=== PATIENT | female | born 1945 | race Caucasian/White ===

== ENCOUNTER → 2018-09-18 | Day surgery (SDC) | payer MEDICARE ==
--- NOTE | 2018-09-17 13:38 | Diagnostic Imaging Report ---
EXAMINATION: PA and lateral views of the chest. COMPARISON: 07/11/2015 CLINICAL HISTORY: Preoperative study for orthopedic procedure DISCUSSION: Stable position of left subclavian approach central venous port catheter, with the tip projecting over the low superior vena cava. Lungs are well-inflated and without focal consolidation, pleural effusion, or pneumothorax. Stable cardiomediastinal contour with tortuosity and atherosclerotic calcification of the thoracic aorta. Normal heart size. No pulmonary edema. No acute osseous abnormalities. IMPRESSION: No acute cardiopulmonary abnormalities. Signed by: Dr. Anthony Broussard M.D. on 09/17/2018 1:35 PM
[~2018-09-18] MED LIST: CEFAZOLIN SOD 1 GM/NS 50ML 50 ML IV ONE; DEXAMETHASONE SOD PHOS INJ 4 MG/ML VIAL ONE; DIPHENHYDRAMINE HCL INJ 50 MG/ML VIAL ONE; FENTANYL CITRATE/PF 100MCG/2 ML INJ ONE; HYDRALAZINE HCL 20 MG/ML VIAL ONE; KETOROLAC TROMETHAMINE 30 MG/ML VIAL ONE; LIDOCAINE HCL 2% LOCAL INJ 5 ML SDV VIAL INJ ONE; LOSARTAN-HCTZ1 EACH PO; MEPERIDINE HCL INJ 25 MG/ML VIAL ONE; ONDANSETRON HCL INJ 2MG/ML 2ML 2 MG/ML VIAL ONE; PROPOFOL IV EMULSION 10 MG/ML 20 ML VIAL ONE; SEVOFLURANE INHAL SOLN 250 ML PEN BTL ONE; SIMVASTATIN20 MG PO; VITAMIN D-3 PO
--- OUTSIDE RECORDS SUMMARY | 2018-09-18 10:32 | XMS REPORT ---
Author Author [facility] Address Unknown Phone Unavailable Care Team Providers Care Canal Superintendent Name Role Phone SHAHAB MARIANO Unavailable Unavailable Payers Payer Name Policy Type Policy Number Effective Date Expiration Date Problems This patient has no known problems. Allergies, Adverse Reactions, Alerts Allergy Name Allergy Type Status Severity Reaction(s) Onset Date Inactive Date Treating Clinician Comments codeine DA Active U 2018-09-05 00:00:00 Medications This patient has no known medications. Results Test Description Test Time Test Comments Text Results Atomic Results Result Comments CHEST 2 VIEWS 2018-09-17 13:33:00 [place] [address] Patient Name: JUAN MANUEL DOBBINS MR #: [id number] : 1945 Age/Sex: 73/F Req #: [id number] Adm Physician: Ordered by: SHAHAB MARIANO MD Report #: [id number] Location: OR Room/Bed: Procedure: [id number] DX/CHEST 2 VIEWS Exam Date: 09/17/18 Exam Time: 1235 REPORT STATUS: Signed EXAMINATION: PA and lateral views of the chest. COMP ARISON: 07/11/2015 CLINICAL HISTORY: Preoperative study for orthopedic procedure DISCUSSION: Stable position of left subclavian approach central venous port catheter, with the tip projecting over the low superior vena cava. Lungs are well-inflated and without focal consolidation, pleural effusion, or pneumothorax. Stable cardiomediastinal contour with tortuosity and atherosclerotic calcification of the thoracic aorta. Normal heart size. No pulmonary edema. No acute osseous abnormalities. IMPRESSION: No acute cardiopulmonary abnormalities. Signed by: Dr. Shahab Broussard M.D. on 09/17/2018 1:35 PM Dictated By: SHAHAB BROUSSARD MD 1330 Transcribed By: FLAVIO on 09/17/18 1339 COPY TO: SHAHAB MARIANO MD TROPONIN-I 2018-09-07 02:09:00 TROPONIN-I (test code=TROPI) 0.089 ng/mL 0-0.045 COMPREHENSIVE METABOLIC [id number] 02:07:00* Test Item Value Reference Range Comments SODIUM (test code=NA) 138 mmol/L 136-145 POTASSIUM (test code=K) 4.0 mmol/L 3.5-5.1 CHLORIDE (test code=CL) 102.0 mmol/L 98-107 CARBON DIOXIDE (test code=CO2) 27.0 mmol/L 21-32 ANION GAP (test code=GAP) 13.0 10-20 GLUCOSE (test code=GLU) 111 mg/dL 74-106 BLOOD UREA NITROGEN (test code=BUN) 15 mg/dL 7-18 GLOMERULAR FILTRATION RATE (test code=GFR) > 60 mL/min >=60 Estimated GFR by using Modified MDRD formula.Chronic kidney disease is defined as either kidney damageor GFR <60 mL/min/1.73 m2 for >3 months. CREATININE (test code=CREAT) 0.80 mg/dL 0.55-1.02 Note change in reference range due to change in reagent. BUN/CREATININE RATIO (test code=BUN/CREA) 18.8 10-20 TOTAL PROTEIN (test code=PROT) 6.0 gram/dL 6.4-8.2 ALBUMIN (test code=ALB) 3.5 g/dL 3.4-5.0 GLOBULIN (test code=GLOB) 2.5 gram/dL 2.7-4.2 ALBUMIN/GLOBULIN RATIO (test code=A/G) 1.4 0.75-1.50 CALCIUM (test code=CA) 8.6 mg/dL 8.5-10.1 BILIRUBIN TOTAL (test code=BILT) 0.60 mg/dL 0.0-1.0 SGOT/AST (test code=AST) 15 IUnit/L 15-37 SGPT/ALT (test code=ALT) 23 IUnit/L 12-78 ALKALINE PHOSPHATASE TOTAL (test code=ALKP) 68 IUnit/L 45-117 Note change in reference range due to change in reagent. CBC W/AUTO [id number] 01:41:00* Test Item Value Reference Range Comments WHITE BLOOD CELL (test code=WBC) 7.6 K/mm3 4.5-12.5 RED BLOOD CELL (test code=RBC) 4.24 mill/mm3 3.7-5.2 HEMOGLOBIN (test code=HGB) 12.7 gram/dL 11.5-15.5 HEMATOCRIT (test code=HCT) 39.1 % 36.0-46.0 MEAN CELL VOLUME (test code=MCV) 92.2 fL 80-98 MEAN CELL HGB (test code=MCH) 30.0 picogram 27.0-33.0 MEAN CELL HGB CONCETRATION (test code=MCHC) 32.5 gram/dL 33.0-36.0 RED CELL DISTRIBUTION WIDTH (test code=RDW) 13.1 % 11.6-16.2 RED CELL DISTRIBUTION WIDTH SD (test code=RDW-SD) 44.0 fL 37.0-51.0 PLATELET COUNT (test code=PLT) 205 K/mm3 150-450 MEAN PLATELET VOLUME (test code=MPV) 10.3 fL 6.7-11.0 NEUTROPHIL % (test code=NT%) 65.0 % 39.0-69.0 IMMATURE GRANULOCYTE % (test code=IG%) 0.4 % 0.0-5.0 LYMPHOCYTE % (test code=LY%) 25.5 % 25.0-55.0 MONOCYTE % (test code=MO%) 8.0 % 0.0-10.0 EOSINOPHIL % (test code=EO%) 0.8 % 0.0-5.0 BASOPHIL % (test code=BA%) 0.3 % 0.0-1.0 NUCLEATED RBC % (test code=NRBC%) 0.0 % 0-0 NEUTROPHIL # (test code=NT#) 4.95 K/mm3 1.8-7.7 IMMATURE GRANULOCYTE # (test code=IG#) 0.03 x10 3/uL 0-0.03 LYMPHOCYTE # (test code=LY#) 1.94 K/mm3 1.0-5.0 MONOCYTE # (test code=MO#) 0.61 K/mm3 0-0.8 EOSINOPHIL # (test code=EO#) 0.06 K/mm3 0.0-0.5 BASOPHIL # (test code=BA#) 0.02 K/mm3 0.0-0.2 NUCLEATED RBC # (test code=NRBC#) 0.00 K/mm3 0.0-0.1 [id number] 20:59:00* Test Item Value Reference Range Comments TROPONIN-I (test code=TROPI) 0.084 ng/mL 0-0.045 RESULT VERIFIED BY REPEAT ANALYSIS DRAW V.LAB.AZ 09/06/181931- PULM VENT PERF [id number] 17:38:00 FAX: Andrew Gonsales MD [phone] [place]: St: ADM Name: KIEL VAZQUEZ [facility] : [birth year] Age/S: 73/F [address] [facility] Unit #: [id number] Loc: [place] [address] Phys: Andrew Gonsales MD Acct: [id number] Dis Date: Status: ADM IN PHONE #: [phone] Exam Date: 09/06/2018 1646 FAX #: [phone] Reason: HYPOXIA, R/O PE EXAMS: CPT CODE: [id number] PULM VENT PERF IMAG 12254 HISTORY: HYPOXIA, R/O PE EXAM: NUCLEAR PULMONARY V/Q SCAN. COMPARISON: None FINDINGS: Ventilation scan: After the patient was given 10 mCi Xenon 133 gas to inhale, posterior images were obtained of the lungs in immediate and washout phases. Homogeneous radiopharmaceutical distribution with symmetric washout bilaterally. Perfusion scan: After intravenous injection of 5.5 mCi TC 99m MAA, static images were obtained over the lungs in multiple projections. Homogeneous distribution of radi opharmaceutical in both lungs without pleural based segmental perfusion de fects. Ventilation and perfusion images are matched in the posteri or projection. IMPRESSION: Modified PIOP ED II category: PE absent (normal perfusion) Electronicall y Signed by Héctor Lucio MD on 09/06/2018 at 1816 Reporte d and signed by: Héctor Lucio MD CC: Andrew Gonsales MD Technologist: Raman Collazo Trnscrd Date/Time/By: 09/06/2018 (1388) : By: [email or web address] Orig Print D/T: S: 09/06/2018 (3072) PAGE 1 Signed Report [id number] 11:54:00* Test Item Value Reference Range Comments TROPONIN-I (test code=TROPI) 0.081 ng/mL 0-0.045 COMMENTS TO DAIRY EQUIPMENT MECHANIC: COLLECT 3 HOURS AFTER PREVIOUS [id number] 08:39:00* Test Item Value Reference Range Comments TROPONIN-I (test code=TROPI) 0.093 ng/mL 0-0.045 COMMENTS TO DAIRY EQUIPMENT MECHANIC: COLLECT 3 HOURS AFTER PREVIOUS SAMPLEB-TYPE NATRIURETIC [id number] 01:42:00* Test Item Value Reference Range Comments B-TYPE NATRIURETIC PEPTIDE (test code=BNP) 74.79 pgram/mL 0-100 BASIC METABOLIC [id number] 01:15:00* Test Item Value Reference Range Comments SODIUM (test code=NA) 139 mmol/L 136-145 POTASSIUM (test code=K) 3.9 mmol/L 3.5-5.1 CHLORIDE (test code=CL) 104.0 mmol/L 98-107 CARBON DIOXIDE (test code=CO2) 27.0 mmol/L 21-32 ANION GAP (test code=GAP) 11.9 10-20 GLUCOSE (test code=GLU) 130 mg/dL 74-106 BLOOD UREA NITROGEN (test code=BUN) 20 mg/dL 7-18 GLOMERULAR FILTRATION RATE (test code=GFR) > 60 mL/min >=60 Estimated GFR by using Modified MDRD formula.Chronic kidney disease is defined as either kidney damageor GFR <60 mL/min/1.73 m2 for >3 months. CREATININE (test code=CREAT) 0.80 mg/dL 0.55-1.02 Note change in reference range due to change in reagent. BUN/CREATININE RATIO (test code=BUN/CREA) 25.0 10-20 CALCIUM (test code=CA) 9.1 mg/dL 8.5-10.1 [id number] 01:15:00* Test Item Value Reference Range Comments TROPONIN-I (test code=TROPI) 0.095 ng/mL 0-0.045 Results called to [id number] by V.LAB.CLEVE 09/06/18 0114Critical results verified and read back by Nurse?Y [id number] 01:10:00* Test Item Value Reference Range Comments D-DIMER (test code=DDIMER) 1234.00 ng/mLFEU 0-500 Results called to [id number] by V.LAB.JQ 09/06/18 0110Critical results verified and read back by Nurse? YClinical Cut-off value for D-Dimer is 500 ng/mL FEU. Comment: The [employer] D- Dimer assay is intended for use asan aid in the diagnosis of venous thromboembolism (VTE)[deep vein thrombosis (DVT) or pulmonary embolism (PE)].The measurement of D-Dimer should not be used as an aid inthe diagnosis of VTE, in patient with: -Therapeutic dose anticoagulant therapy for >24 hours - Fibrinolytic therapy within previous 7 days -Trauma or surgery within previous 4 weeks -Disseminated malignancies -Aortic aneurysm -Sepsis, severe infections, pneumonia, severe skin infections -Liver cirrhosis - CBC W/O [id number] 01:03:00* Test Item Value Reference Range Comments WHITE BLOOD CELL (test code=WBC) 9.5 K/mm3 4.5-12.5 RED BLOOD CELL (test code=RBC) 4.37 mill/mm3 3.7-5.2 HEMOGLOBIN (test code=HGB) 13.0 gram/dL 11.5-15.5 HEMATOCRIT (test code=HCT) 39.6 % 36.0-46.0 MEAN CELL VOLUME (test code=MCV) 90.6 fL 80-98 MEAN CELL HGB (test code=MCH) 29.7 picogram 27.0-33.0 MEAN CELL HGB CONCETRATION (test code=MCHC) 32.8 gram/dL 33.0-36.0 RED CELL DISTRIBUTION WIDTH (test code=RDW) 12.7 % 11.6-16.2 PLATELET COUNT (test code=PLT) 220 K/mm3 150-450 MEAN PLATELET VOLUME (test code=MPV) 10.5 fL 6.7-11.0 BASIC METABOLIC [id number] 01:00:00* Test Item Value Reference Range Comments SODIUM (test code=NA) 139 mmol/L 136-145 POTASSIUM (test code=K) 3.9 mmol/L 3.5-5.1 CHLORIDE (test code=CL) 104.0 mmol/L 98-107 CARBON DIOXIDE (test code=CO2) mmol/L 21-32 ANION GAP (test code=GAP) 10-20 GLUCOSE (test code=GLU) mg/dL 74-106 BLOOD UREA NITROGEN (test code=BUN) mg/dL 7-18 GLOMERULAR FILTRATION RATE (test code=GFR) mL/min >=60 CREATININE (test code=CREAT) mg/dL 0.55-1.02 BUN/CREATININE RATIO (test code=BUN/CREA) 10-20 CALCIUM (test code=CA) 9.1 mg/dL 8.5-10.1 [id number] 01:00:00* Test Item Value Reference Range Comments TROPONIN-I (test code=TROPI) ng/mL 0-0.045 - XR CHEST 1 [id number] 23:41:00 FAX: Monico Goodwin MD [phone] [place]: B St: REG Name: KIEL VAZQUEZ [facility] : [birth year] Age/S: 73/F [address] Unit #: [id number] Loc: [place] [address] Phys: Monico Goodwin MD Acct: [id number] Dis Date: Status: REG ER PHONE #: [phone] Exam Date: 09/05/2018 2332 FAX #: [phone] Reason: Shortness of Breath EXAMS: CPT CODE: [id number] XR CHEST 1 V 79199 EXAM: Portable chest one view. Location code:J9 HISTORY: Shortness of breath COMPARISON: None available. COMMENT: A left-sided subclavian line is noted with tip in the SVC. The lungs and pleural spaces are clear. Lungs are normally expanded. The aorta, pulmonary vasculature and medias tinum are within normal limits. Cardiac silhouette is normal in size and contour. Visualized skeletal structures are unremarkable. IMPRESSION: No active disease in the chest. at 2341 Reported and si gned by: Aric Treviño M.D. CC: Monico Goodwin MD Technologist: Edel Duncan Trnscrd Date/Time/By: 09/05/2018 (3004) : By: [email or web address] Orig Print D/T: S: 09/05/2018 (5466) PAGE 1 Signed Report - XR WRIST 2 VIEWS LT 2018-09-05 21:04:00 FAX: Abdoulaye Gallagher MD [phone] [place]: B St: REG Name: KIEL VAZQUEZ [facility] : [birth year]18 [birth year] Age/S: 73/F [address] Unit #: [id number] Loc: [place] [address] Phys: Abdoulaye Gallagher MD Acct: [id number] Dis Date: Status: REG ER PHONE #: [phone] Exam Date: 09/05/20182049 FAX #: [phone] Reason: post reduction film EXAMS: CPT CODE: [id number] XR WRIST [address] [place] [address] REASON FOR EXAM: post reduction film EXAM ORDER DATE: 09/05/2018 8:38 PM Ordering M.DNichol: Abdoulaye Gallagher MD PROCEDURE: - XR WRIST 2 VIEWS LT FINDINGS: 3 views of the left wrist were obtained. IMPRESSION: Near anatomical alignment of the comminuted fracture of the distal left radius and transverse fracture of the distal left ulna at 2103 Reported and signed by: Michele Hallman M.D. CC: Abdoulaye Gallagher MD Technologist: RT LORENA(Marta) Trnscrd Date/Time/By: 09/05/2018 (2103) : By: BethVTL Orig Print D/T: S: 09/05/2018 (2106) PAGE 1 Signed Report - XR HUMERUS 2 + V [id number] 17:14:00 FAX: Abdoulaye Gallagher MD [phone] [place]: St: REG Name: KIEL VAZQUEZ [facility] : [birth year] 42 Age/S: 73/F [address] Unit #: [id number] Loc: [place] [address] Phys: Abdoulaye Gallagher MD Acct: [id number] Dis Date: Status: REG ER PHONE #: [phone] Exam Date: 09/05/2018454 FAX #: [phone] Reason: fall EXAMS: CPT CODE: [id number] XR HUMERUS 2 + [place] [address] REASON FOR EXAM: fall EXAM ORDER DATE: 09/05/2018 4:38 PM Milena lares M.D.: Abdoulaye Gallagher MD PROCEDURE: - XR HUMERUS 2 + V LT FINDINGS: 2 views of the left humerus were obtained. The osseous structures are unremarkable in size and shape. The joint spaces are main tained. No evidence of fracture. The acromioclavicular joint is intact IMPRESSION: Unremarkable left humerus Electronically S igned by Jim Hallman on 09/05/2018 at 9087 Reported and signed by: Michele Hallman M.D. CC: Abdoulaye Gallagher MD Technologist: SACHI MADERA) Trnscrd Date/Time/By: 09/05/2018 (0739) : By: BethVTL Orig Print D/T: S: 09/05/2018 (5371) PAGE 1 Signed Report - XR FOREARM 2 VIEWS LT 2018-09-05 16:19:00 FAX: Abdoulaye Gallagher MD [phone] [place]: St: PRE Name: KIEL VAZQUEZ [facility] : [birth year] Age/S: 73/F [address] [facility] Unit #: [id number] Loc: [place] [address] Phys: Abdoulaye Gallagher MD Acct: [id number] Dis Date: Status: PRE ER PHONE #: [phone] Exam Date: 09/05/2018 1605 FAX #: [phone] Reason: fall EXAMS: CPT CODE: [id number] XR FORE[place] [address] [place] [address] TECHNIQUE - XR HAND 3 + V LT, - XR WRIST 3 + V LT, - XR FOREARM 2 VIEWS LT . COMPARISON: N one provided. HISTORY: 73 years Female fall FINDINGS: Bones: Acute fracture distal left radius with intra-articular extension. 7 mm anterior displacement of the distal segment. 3 mm impaction. Surrounding soft tissue swelling. Acute fracture of distal ulna with at least 2 mm separation. No dislocation. No suspici ous bone lesion. Joints: Moderate osteophytes. Mod erate joint space reduction. No subchondral bone lesions. No bony erosi ons. Other: None. IMPRESSION: Ac pokagon fracture distal left radius with intra-articular extension. 7 mm ant erior displacement of the distal segment. 3 mm impaction. Surrounding so ft tissue swelling. Acute fracture of distal ulna with at least 2 mm sep aration. Moderate osteoarthritic changes. at 0516 Reported and signed by: Raman Palafox M.D. CC: Abdoulaye Gallagher MD Technologist: Zeny Thurston RT(R) Trnscrd Date/Time/By: 09/05/2018 (3090) : By: AdelinaO Orig Print D/T: S: 09/05/2018 (1522) PAGE 1 Signed Report - XR WRIST 3 + V LT 2018-09-05 16:19:00 FAX: Abdoulaye Gallagher MD [phone] [place]: St: PRE Name: KIEL VAZQUEZ [facility] : [birth year] 42 Age/S: 73/F [address] [facility] Unit #: [id number] Loc: [place] [address] Phys: Abdoulaye Gallagher MD Acct: [id number] Dis Date: Status: PRE ER PHONE #: [phone] Exam Date: 09/05/2018 1605 FAX #: [phone] Reason: fall EXAMS: CPT CODE: [id number] XR WRIST 3 + [place] LT [address] TECHNIQUE - XR HAND 3 + V LT, - XR WRIST 3 + V LT, - XR FOREARM 2 VIEWS LT . COMPARISON: N one provided. HISTORY: 73 years Female fall FINDINGS: Bones: Acute fracture distal left radius with intra-articular extension. 7 mm anterior displacement of the distal segment. 3 mm impaction. Surrounding soft tissue swelling. Acute fracture of distal ulna with at least 2 mm separation. No dislocation. No suspici ous bone lesion. Joints: Moderate osteophytes. Mod erate joint space reduction. No subchondral bone lesions. No bony erosi ons. Other: None. IMPRESSION: Ac pokagon fracture distal left radius with intra-articular extension. 7 mm ant erior displacement of the distal segment. 3 mm impaction. Surrounding so ft tissue swelling. Acute fracture of distal ulna with at least 2 mm sep aration. Moderate osteoarthritic changes. at 0546 Reported and signed by: Raman Palafox M.D. CC: Abdoulaye Gallagher MD Technologist: Zeny LIRA(R) Trnscrd Date/Time/By: 09/05/2018 (1602) : By: Swati.ANA Orig Print D/T: S: 09/05/2018 (7261) PAGE 1 Signed Report - XR HAND 3 + V LT 2018-09-05 16:19:00 FAX: Abdoulaye Gallagher MD [phone] [place]: St: PRE Name: KIEL VAZQUEZ [facility] : [birth year] 42 Age/S: 73/F [facility] Unit #: [id number] Loc: [place] [address] Phys: Abdoulaye Gallagher MD Acct: [id number] Dis Date: Status: PRE ER PHONE #: [phone] Exam Date: 09/05/2018 1605 FAX #: [phone] Reason: fall EXAMS: CPT CODE: [id number] XR HAND 3 + V LT [address] TECHNIQUE - XR HAND 3 + V LT, - XR WRIST 3 + V LT, - XR FOREARM 2 VIEWS LT . COMPARISON: N one provided. HISTORY: 73 years Female fall FINDINGS: Bones: Acute fracture distal left radius with intra-articular extension. 7 mm anterior displacement of the distal segment. 3 mm impaction. Surrounding soft tissue swelling. Acute fracture of distal ulna with at least 2 mm separation. No dislocation. No suspici ous bone lesion. Joints: Moderate osteophytes. Mod erate joint space reduction. No subchondral bone lesions. No bony erosi ons. Other: None. IMPRESSION: Ac pokagon fracture distal left radius with intra-articular extension. 7 mm ant erior displacement of the distal segment. 3 mm impaction. Surrounding so ft tissue swelling. Acute fracture of distal ulna with at least 2 mm sep aration. Moderate osteoarthritic changes. at 1619 Reported and signed by: Raman Palafox M.D. CC: Abdoulaye Gallagher MD Technologist: Zeny LIRA(R) Trnscrd Date/Time/By: 09/05/2018 (3625) : By: Ester Gong Print D/T: S: 09/05/2018 (4096) PAGE 1 Signed Report
[2018-09-18 11:35] LABS: BASOPHILS % 0.5 % (0.0-1.0); EOSINOPHILS # (AUTO) 0.4 (0.0-0.4); EOSINOPHILS % 5.6 % (0.0-6.0); HEMATOCRIT 37.9 % (34.2-44.1); HEMOGLOBIN 13.2 g/dL (12.0-16.0); LYMPHOCYTES # (AUTO) 1.1 (1.0-3.2); LYMPHOCYTES % 15.5 % (18.0-39.1); MEAN CORPUSCULAR HEMOGLOBIN 30.5 pg (28-32); MEAN CORPUSCULAR HGB CONC 34.8 g/dL (31-35); MEAN CORPUSCULAR VOLUME 87.5 fL (81-99); MONOCYTES # (AUTO) 0.5 (0.2-0.8); MONOCYTES % 6.6 % (4.4-11.3); NEUTROPHILS # (AUTO) 5.2 (2.1-6.9); NEUTROPHILS % 71.4 % (38.7-80.0); PLATELET COUNT 288 x10e3/uL (140-360); RED BLOOD COUNT 4.33 x10e6/uL (3.6-5.1); RED CELL DISTRIBUTION WIDTH 12.4 % (11.7-14.4)
[2018-09-18 11:52] LABS: BLOOD UREA NITROGEN 16 mg/dL (7-26); BUN/CREATININE RATIO 18 (6-25); CALCIUM 9.9 mg/dL (8.4-10.2); CARBON DIOXIDE 23 mmol/L (22-29); CHLORIDE 101 mmol/L (98-107); CREATININE, SERUM 0.88 mg/dL (0.57-1.11); EST GLOMERULAR FILTRATION RATE > 60 ML/MIN (60-); GLUCOSE 104 mg/dL (74-118); SODIUM 132 mmol/L (136-145)
[2018-09-18 14:45] VITALS: BP 160/82
--- NOTE | 2018-09-18 21:01 | Operative Report ---
DATE OF PROCEDURE: 09/18/2018 SURGEON: Anthony Coyne MD [employer]: Kavin Barroso, Certified PA. PREOPERATIVE DIAGNOSES: 1. Left distal radius fracture. 2. Left ulnar shaft fracture. POSTOPERATIVE DIAGNOSES: 1. Left distal radius fracture. 2. Left ulnar shaft fracture. PROCEDURE: Closed reduction and percutaneous pin fixation, left distal radius and left ulna. INDICATIONS: The patient is a 73-year-old lady, who has a left distal radius and distal ulna fracture. The findings and options have been discussed. We initially treated this conservatively. She returned yesterday to the clinic with increased displacement. The findings and options were discussed. We planned on percutaneous pin fixation. The contributing element of osteoporosis was discussed at length with the patient. She states she understands and wishes to proceed. DESCRIPTION OF PROCEDURE: The patient was brought to the operating room and placed under general anesthetic. Her left upper extremity was prepped and draped in a sterile manner. A preoperative time-out was performed. Manual traction and reduction maneuvers were applied to the left distal radius. A C-arm image intensifier was used to assess the reduction. There was a volar fragment that remained displaced. Two 0.062 K-wires were placed into the distal radius and into the radial shaft. Particular tension was applied to capturing the volar fragment. A 0.045 K-wire was then placed from the ulnar styloid across the fracture site and into the ulnar shaft. X-rays were obtained, which showed satisfactory reduction and positioning of the pins. The pins were cut short and capped. A sterile bandage was applied. A sugar-tong splint was applied. The patient was extubated and transported to the recovery room in stable condition. There was no blood loss and all needle and sponge counts were correct. Anthony Coyen MD DR/ANTONELLA /[id number]
== END | disposition home or self-care (01) ==
LOC: OR 10:29
PROVIDERS: ATTEND Specialist
DX: S52.532A Colles' fracture of left radius, initial encounter for closed fracture (principal); S52.222A Displaced transverse fracture of shaft of left ulna, initial encounter for closed fracture; I10 Essential (primary) hypertension; M19.90 Unspecified osteoarthritis, unspecified site; W18.49XA Other slipping, tripping and stumbling without falling, initial encounter; Y92.481 Parking lot as the place of occurrence of the external cause; Z88.6 Allergy status to analgesic agent; Z01.810 Encounter for preprocedural cardiovascular examination; Z01.818 Encounter for other preprocedural examination; Z68.36 Body mass index [BMI] 36.0-36.9, adult; Z85.3 Personal history of malignant neoplasm of breast
CPT/HCPCS: 36415; 71046; 76000; 80048; 85025; 93005; C1713; J0360; J0690; J1100; J1200; J1885; J2001; J2175; J2405